=== PATIENT | female | born 1990 | race Caucasian/White ===

== ENCOUNTER 2016-10-31 01:58 | Emergency (ER) | payer BC ==
[~2016-10-31] VITALS: Ht 162.6 cm; Wt 81.2 kg
[~2016-10-31 01:58] MED LIST: HYDR-2013 PO; HYDR-707 PO; OXYC1TAB87 PO; PENI250T2 PO
[2016-10-31] MEDS ORDERED: GI COCKTAIL 55 ML UDC PO ONE (02:30)
[2016-10-31] MEDS ORDERED: BELLADONNA/PHENOBARBITAL ELIXIR (DONNATAL) 10 ML UDC ONE (02:46)
[2016-10-31] MEDS ORDERED: LIDOCAINE 2% VISCOUS 20ML UDC PO ONE (02:46)
[2016-10-31] MEDS ORDERED: MAG HYDROX/AL HYDROX/SIMETH 400-400-40/5 ML (MAG-AL PLUS XS) 30 ML UDC ONE (02:46)
[2016-10-31 02:49] LABS: BASOPHILS % (AUTO) 0 % (0-2); EOSINOPHILS # (AUTO) 0.1 10^3uL; EOSINOPHILS % (AUTO) 2 % (0-4); LYMPHOCYTES # (AUTO) 2.6 X10^3; MEAN CORPUSCULAR HEMOGLOBIN 28.6 PG (26.0-34.0); MEAN CORPUSCULAR HGB CONC 34.6 g/dL (31.0-37.0); MEAN CORPUSCULAR VOLUME 83 FL (80-100); MEAN PLATELET VOLUME 9.7 FL (6.0-9.5); MONOCYTES # (AUTO) 0.5 X10^3; MONOCYTES % (AUTO) 6 % (3-11); NEUTROPHILS # (AUTO) 4.6 X10^3; NEUTROPHILS % (AUTO) 59 % (51-67); PLATELET COUNT 241 10^3uL (150-450); WHITE BLOOD COUNT 7.83 10^3uL (4.0-11.0)
[2016-10-31 02:58] LABS: ALBUMIN 4.7 g/dL (3.4-5.0); ALKALINE PHOSPHATASE 109 U/L (38-126); ANION GAP 14.6 MEQ/L (3-15); BUN/CREATININE RATIO 27 (10-20); CALCULATED IONIZED CALCIUM 3.7 mg/dL (3.8-4.6); LIPASE* 78 U/L (23-300); TOTAL PROTEIN 8.6 g/dL (6.4-8.5)
[2016-10-31] MEDS ORDERED: ONDANSETRON 2 MG/ML (Z0FRAN) 2 ML VIAL IV ONE (03:15)
[2016-10-31] MEDS ORDERED: KETOROLAC 30 MG/ML (TORADOL) 1 ML VIAL IV ONE (03:15)
[2016-10-31] MEDS ORDERED: SODIUM CHLORIDE FLUSH 10 ML SYR IV PRN (03:20)
[2016-10-31] MEDS ORDERED: ED- HYDROcodone/ACETAMINOPHEN 5MG/325MG (NORCO) 6 TABLETS/BTL PO ONE ×2 (03:50→03:55)
[2016-10-31 04:07] VITALS: BP 123/72
--- NOTE | 2016-10-31 07:28 | Diagnostic Imaging Report ---
INDICATION: Right-sided chest pain x2 hours.. TECHNIQUE: Single view chest 3:01 AM. CORRELATION STUDY: None FINDINGS: The heart size, mediastinal configuration and pulmonary vascularity are within normal limits. The lungs are clear with no consolidating infiltrate. There is no significant effusion or pneumothorax. IMPRESSION: 1. Negative portable chest. Dictated by: Dictated on workstation # [id number]
== END 2016-10-31 04:08 | disposition home or self-care (01) ==
LOC: ED 02:08 → MERGE 02:08 → ED 04:08
DX: R10.11 Right upper quadrant pain (principal)
CPT/HCPCS: 36415; 71010; 80053; 83690; 84484; 85025; 85379; 96374; 96375; 99283; J1885; J2405

== ENCOUNTER 2016-10-31 22:17 | Inpatient (IN) | payer BC ==
[~2016-10-31] VITALS: Ht 162.6 cm; Wt 83.0 kg
--- OUTSIDE RECORDS SUMMARY | 2016-10-31 22:21 | XMS REPORT | Continuity of Care Document ---
Author Author [facility] Address Unknown Phone Unavailable Care Team Providers Care Horticultural Worker Name Role Phone MINH ROBLES MD PCP [phone] Insurance Providers Payer Name Policy Number Subscriber Name Relationship [facility] [id number] CollinMarlin L 01 Advance Directives Directive Response Recorded Date/Time Advanced Directives Not applicable 10/31/16 2:10am Chief Complaint and Reason for Visit Chief Complaint Pain Reason for Visit Right upper quadrant pain Problems Active Problems Medical Problem Onset Date Status Right upper quadrant pain ~10/31/2016 Acute Medications No medication information available. Social History Query Response Start Date Stop Date Smoking Status Former smoker Hospital Discharge Instructions No hospital discharge instructions. Plan of Care Discharge Date 10/31/16 4:08am Disposition 01 HOME OR SELF-CARE Condition at Discharge Stable Instructions/Education Provided Hydrocodone and Acetaminophen Gallstones (DC) Forms Provided Return to Work Prescriptions See Medication Section Referrals MINH ROBLES MD - Additional Instructions/Education Call Dr Robles this week for an appointment to further evaluate the gallbladder. Low fat diet until further evaluation. You may take the norco when you get home for further pain. Return to ER for further evaluation. Some of your test results may not be complete prior to your leaving the Emergency Department. The Emergency Department is not authorized to give test results over the phone. Please contact the doctor's office listed in this packet of information for your final results. Follow up with your primary care physician or return to the Emergency Department for worsening or worrisome symptoms. * Emergency Department phone number: [phone], x [phone]* MEDICAL RECORD If you need copies of your X-rays, call [phone]. If you need copies of your medical record, including lab results, a signed authorization for release of records will be required. A telephone call for release of Health Information is not allowed. BILLING Billing can sometimes be confusing and frustrating. To help avoid confusion in the future, please take a moment to acquaint yourself with the billing parties for services. SERVICE [employer]ILL[employer] Emergency Room Services [facility] Physician Services [facility] X-rays [facility] Patients will receive bills for services from the appropriate provider. If you have any questions about your [facility] bill, our staff will be happy to assist you. Please call [phone], and ask for the billing department. THANK YOU for choosing [facility] as your emergency care provider! Care Plan and Goals ~~Discharge Care Plan~~ Problem: Abdominal pain Goal: Decreased level of pain. Return to usual activities. Instructions: Take medication(s) as directed; follow up with primary care physician as directed; follow patient home care instructions.~~Discharge Care Plan~~ Problem: Nausea, vomiting or diarrhea Goal: Decrease in nausea, vomiting or diarrhea Instructions: Encourage fluids approximately 6-8 glasses of water or noncarbonated fluids. Take medication(s) as directed. Follow home discharge instructions. Follow up with primary care physicians or harness worker as directed. Functional Status No functional status results. Allergies, Adverse Reactions, Alerts Allergen Type Severity Reaction Status Last Updated No Known Allergies Allergy Unknown Active 10/31/16 Immunizations No immunization records. Vital Signs Acute Vital Signs Vital Response Date/Time Temperature (Fahrenheit) 98.2 10/31/2016 4:07am Pulse 68 bpm 10/31/2016 4:07am Respirations 16 10/31/2016 4:07am Height 5 ft 4 in Weight 179 lb Body Mass Index 30.0 kg/m^2 Results Laboratory Results Test Name Result Units Flags Reference Collection Date/Time Result Date/ Time Comments White Blood Count 7.83 10^3uL 4.0-11.0 10/31/2016 2:40am 10/31/2016 2: 52am Red Blood Count 4.69 10^6uL 4.00-5.00 10/31/2016 2:4010/31/2016 2: 52am Hemoglobin 13.4 g/dL 12.0-15.5 10/31/2016 2:4010/31/2016 2:52am Hematocrit 38.70 % 35.00-45.00 10/31/2016 2:4010/31/2016 2:52am Mean Corpuscular Volume 83 FL 80-100 10/31/2016 2:4010/31/2016 2: 52am Mean Corpuscular Hemoglobin 28.6 PG 26.0-34.0 10/31/2016 2:402016 2:52am Mean Corpuscular Hemoglobin Concent 34.6 g/dL 31.0-37.0 10/31/2016 2: 4010/31/2016 2:52am Red Cell Distribution Width 12.8 % 11.8-15.6 10/31/2016 2:402016 2:52am Platelet Count 241 10^3uL 150-450 10/31/2016 2:4010/31/2016 2:52am Mean Platelet Volume 9.7 FL H 6.0-9.5 10/31/2016 2:4010/31/2016 2: 52am Neutrophils (%) (Auto) 59 % 51-67 10/31/2016 2:4010/31/2016 2:52am Lymphocytes (%) (Auto) 33 % 20-46 10/31/2016 2:4010/31/2016 2:52am Monocytes (%) (Auto) 6 % 3-11 10/31/2016 2:4010/31/2016 2:52am Eosinophils (%) (Auto) 2 % 0-4 10/31/2016 2:4010/31/2016 2:52am Basophils (%) (Auto) 0 % 0-2 10/31/2016 2:40am 10/31/2016 2:52am Neutrophils # (Auto) 4.6 X10^3 10/31/2016 2:40am 10/31/2016 2:52am Lymphocytes # (Auto) 2.6 X10^3 10/31/2016 2:40am 10/31/2016 2:52am Monocytes # (Auto) 0.5 X10^3 10/31/2016 2:40am 10/31/2016 2:52am Eosinophils # (Auto) 0.1 10^3uL 10/31/2016 2:40am 10/31/2016 2:52am Basophils # (Auto) 0.0 10^3uL 10/31/2016 2:40am 10/31/2016 2:52am D-Dimer 385 ng/mL 0-500 10/31/2016 2:40am 10/31/2016 3:02am Sodium Level 142 mmol/L 135-150 10/31/2016 2:40am 10/31/2016 3:01am Potassium Level 4.1 mmol/L 3.5-5.1 10/31/2016 2:40am 10/31/2016 3:01am Chloride Level 104 mmol/L 98-108 10/31/2016 2:40am 10/31/2016 3:01am Carbon Dioxide Level 27 mmol/L -10/31/2016 2:4010/31/2016 3: 01am Anion Gap 14.6 MEQ/L 3-10/31/2016 2:40am 10/31/2016 3:01am Blood Urea Nitrogen 17 mg/dL 12-2810/31/2016 2:40am 10/31/2016 3:01am Creatinine 0.64 mg/dL 0.6-1.2 10/31/2016 2:4010/31/2016 3:01am BUN/Creatinine Ratio 27 H -10/31/2016 2:40am 10/31/2016 3:01am Estimat Glomerular Filtration Rate 138.0 10/31/2016 2:40am 2016 3:01am Estimated GFR (Non- 114.0 10/31/2016 2:402016 3:01am Glucose Level 106 mg/dL 70-110 10/31/2016 2:40am 10/31/2016 3:01am Calculated Osmolality 275 mosm/L L 280-300 10/31/2016 2:40am 10/31/2016 3:01am Calcium Level 9.4 mg/dL 8.8-10.8 10/31/2016 2:40am 10/31/2016 3:01am Calcium/Ionized Calcium Ratio 3.7 mg/dL L 3.8-4.6 10/31/2016 2:40am 3:01am Total Bilirubin 0.6 mg/dL 0.1-1.0 10/31/2016 2:40am 10/31/2016 3:01am Alkaline Phosphatase 109 U/L 38-126 10/31/2016 2:40am 10/31/2016 3: 01am Aspartate Amino Transf (AST/SGOT) 21 U/L 15-37 10/31/2016 2:40am 2016 3:01am Alanine Aminotransferase (ALT/SGPT) 29 U/L L 30-65 10/31/2016 2:40am 3:01am Troponin I < 0.012 ng/mL 0.010-0.080 10/31/2016 2:40am 10/31/2016 3: 09am Total Protein 8.6 g/dL H 6.4-8.5 10/31/2016 2:40am 10/31/2016 3:01am Albumin 4.7 g/dL 3.4-5.0 10/31/2016 2:40am 10/31/2016 3:01am Albumin/Globulin Ratio 1.205 1.1-1.8 10/31/2016 2:40am 10/31/2016 3: 01am Lipase 78 U/L 23-300 10/31/2016 2:40am 10/31/2016 3:01am Procedures No known history of procedures. Encounters Encounter Location Arrival/Admit Date Discharge/Depart Date Attending Provider Departed Emergency Room [facility] 10/31/16 2:08am 10/31/16 4:08am RENAE HOUSE MD Recent Diagnosis
--- NOTE | 2016-10-31 22:30 | NUR ---
Pt presents ambulatory to ER with c/o epigastric pain that radiates to back, rated 10-11/10. Was seen last night in ER for same complaint. Has not taken anything for pain since noon today, says Matt wasn't working. Pt has temp of 100.3 Admitted to ER room 9. Call light in reach, side rail up times one. No other needs at this time.
[2016-10-31 23:55] LABS: BILIRUBIN,URINE Negative (Negative); COLOR,URINE Yellow; GLUCOSE, URINE (UA) Negative (Negative); LEUKOCYTE ESTERASE ,URINE Trace (Negative); PH,URINE 6.5 (5.0 - 8.0); UROBILINOGEN,URINE 0.2 mg/dL (0.2-1.0)
[2016-10-31 23:57] LABS: ALBUMIN 4.8 g/dL (3.4-5.0); ANION GAP 15.8 MEQ/L (3-15); CALCULATED IONIZED CALCIUM 3.6 mg/dL (3.8-4.6); TOTAL PROTEIN 8.9 g/dL (6.4-8.5)
[2016-10-31 23:59] LABS: BASOPHILS % (AUTO) 0 % (0-2); EOSINOPHILS % (AUTO) 0 % (0-4); LYMPHOCYTES # (AUTO) 1.5 X10^3; MEAN CORPUSCULAR HEMOGLOBIN 28.6 PG (26.0-34.0); MEAN CORPUSCULAR HGB CONC 34.7 g/dL (31.0-37.0); MEAN CORPUSCULAR VOLUME 82 FL (80-100); MEAN PLATELET VOLUME 10.1 FL (6.0-9.5); MONOCYTES # (AUTO) 0.7 X10^3; MONOCYTES % (AUTO) 6 % (3-11); NEUTROPHILS # (AUTO) 9.3 X10^3; NEUTROPHILS % (AUTO) 81 % (51-67); PLATELET COUNT 265 10^3uL (150-450); WHITE BLOOD COUNT 11.45 10^3uL (4.0-11.0)
[2016-11-01] VITALS (17 sets, daily range): BP systolic 108–135; BP diastolic 63–87
[2016-11-01 00:06] LABS: CLARITY,URINE Slightly Cloudy
[2016-11-01 00:14] LABS: RBC,URINE 0-2 /HPF; URINE CENTRIFUGED VOLUME 12 mL
[2016-11-01] MEDS ORDERED: SODIUM CHLORIDE FLUSH 10 ML SYR IV PRN (00:35)
[2016-11-01] MEDS ORDERED: HYDROmorphone 1 MG/ML (DILAUDID) SYRINGE IV ONE ×2 (00:35→03:00)
[2016-11-01] MEDS ORDERED: SODIUM CHLORIDE FLUSH 3 ML SYR IV ONE (00:35)
--- NOTE | 2016-11-01 01:27 | NUR ---
IV site in RAC infiltrated during CT scan. Restarted IV to LH 20 G, 1st attempt.
[2016-11-01] MEDS ORDERED: cefTRIAXone SODIUM 1,000 MG in SODIUM CHLORIDE 50 ML IV ONE (02:20)
[2016-11-01] MEDS ORDERED: D5 1/2 NS W/KCL 20 MEQ/L 1,000 ML IV SCH (03:10)
[2016-11-01] MEDS ORDERED: ONDANSETRON 2 MG/ML (Z0FRAN) 2 ML VIAL IV PRN ×2 (03:10→15:10)
--- NOTE | 2016-11-01 03:20 | NUR ---
Pt admitted to Med/Surg Rm 319 as observation for Cholecystitis. Pt taken to room 319 via wheelchair. Report given to TASNEEM Pierre.
--- NOTE | 2016-11-01 03:23 | NUR ---
Pt. presents to the Med Surg floor via wheelchair accompanied by ER/RN Allie. Pt. is alert and orientated; ambulates easily to weigh chair; changed into gown; denies nausea; rates current pain level at "2" currently. Pt. ambulates to and fro bathroom steadily; voids 450 cc's yellow, clear urine. Admission process continues.
--- NOTE | 2016-11-01 04:05 | NUR ---
Zofran 4 mg IV given for nausea; cool washcloth provided for forehead.
[2016-11-01] MEDS: HYDROmorphone 1 MG/ML (DILAUDID) SYRINGE IV PRN ×2 (04:10→08:11)
--- NOTE | 2016-11-01 04:10 | NUR ---
Dilaudid 0.5 mg IV given for upper, right abd. pain rated "6". D5 1/2 NS + 20 KCL infusing at 125 cc/hr without difficulty. NPO status observed. Call light by left hand.
--- NOTE | 2016-11-01 04:40 | NUR ---
Pt. resting quietly with HOB slightly up; resp are even and unlabored on room air; appears to be in no distress.
--- NOTE | 2016-11-01 05:30 | NUR ---
Pt.'s phones to check on 's status; update given. plans to come to hospital after getting the older two children (of five) to school.
--- NOTE | 2016-11-01 06:20 | NUR ---
Pt. continues to rest quietly; resp are even and unlabored on room air; appears to be in no distress. NPO status; SCD's tolerated well; call light within reach.
--- NOTE | 2016-11-01 07:15 | NUR ---
Pt sitting up in bed at this time. States pain and nausea are okay, denies need for intervention. IVF infusing with no difficulty. Will continue to monitor.
--- NOTE | 2016-11-01 08:13 | NUR ---
Dr Barber in room around 0800. Pt tells that pain is controlled, but upon assessment pt rates pain 8/10. Some facial grimacing noted, no guarding. Pt resting flat in bed. PRN Dilaudid given at this time. Endorses nausea, no medications available. Offered to ask for other antiemetics, pt states "it's okay, I just feel it. I can wait until it's available". Informed pt to let staff know if nausea worsens. Will continue to monitor.
--- NOTE | 2016-11-01 08:36 | Diagnostic Imaging Report ---
PROCEDURE: CT abdomen and pelvis with contrast. TECHNIQUE: Multiple contiguous axial images were obtained through the abdomen and pelvis after administration of intravenous contrast. INDICATION: Right upper quadrant abdominal pain. AVAILABLE COMPARISONS: None. Images through the thoracic base are negative. The liver and spleen are negative. The gallbladder is moderately distended. At the lateral aspect of the gallbladder, there may be some wall thickening or trace of fluid. Inside the lumen of the gallbladder a faint rim density is present. No calcific stone is seen in the lumen although CT will only detect about 50% of gallstones. The bile ducts are not dilated. The spleen and adrenal glands are negative. The pancreas does not show any significant abnormality. The kidneys are negative for stone or hydronephrosis. No pathologically enlarged lymph nodes are identified in the abdomen or retroperitoneum. Images through the pelvis showed an anteflexed uterus with no pelvic mass or lymphadenopathy. Urinary bladder is unremarkable. The appendix is normal. No bowel wall thickening is identified. The terminal ileum is within normal limits. IMPRESSION: Moderately distended gallbladder with a small amount of fluid around the gallbladder or gallbladder wall thickening. Possible gallstone. Findings could represent acute cholecystitis. Ultrasound is suggested. Report was called and faxed to patient's nurse Orin @ [facility] in [place], [place], @ 9:38 AM/randal. Dictated by: Dictated on workstation # [id number]
[2016-11-01] MEDS ORDERED: METOCLOPRAMIDE 10 MG/2 ML (REGLAN) VIAL IV PRN ×2 (09:00→15:00)
[2016-11-01] MEDS ORDERED: ENOXAPARIN 40 MG/0.4 ML (LOVENOX) SYR SC SCH (09:00)
--- NOTE | 2016-11-01 09:24 | NUR ---
Staff informed this nurse that pt vomited. No PRNs available. Sunil notified, new orders entered. PRN Reglan given at this time. States pain is better. Denies other needs.
--- NOTE | 2016-11-01 09:33 | Diagnostic Imaging Report ---
PROCEDURE: US Gallbladder. TECHNIQUE: Multiple real-time grayscale images were obtained over the right upper quadrant in various projections. INDICATION: Right upper quadrant abdominal pain. FINDINGS: Gallbladder is distended with mild wall thickening. Wall thickness reaches 0.5 cm. There is intraluminal gallbladder sludge and apparent 1.6 cm calculus at the gallbladder neck. No pericholecystic fluid is identified and there is no evidence biliary ductal dilatation. Adjacent liver and pancreas reveal no abnormality. IMPRESSION: 1.6 cm gallstone at the gallbladder neck with gallbladder wall thickening would be consistent with developing cholecystitis. There is no evidence of biliary obstruction. Dictated by: Dictated on workstation # [id number]
[2016-11-01] MEDS ORDERED: ceFAZolin 2,000 MG in SODIUM CHLORIDE 100 ML IV ONE (09:55)
--- NOTE | 2016-11-01 10:04 | NUR ---
Dr Barber calls this nurse to report that pt will go down for lap marie, possible open procedure this morning. States OR should be ready in approx one hour and asked that this nurse inform pt of this plan. Pt is agreeable to this.
[2016-11-01] MEDS ORDERED: LACTATED RINGERS 1,000 ML IV ONE (10:12)
[2016-11-01] MEDS ORDERED: ALFENTANIL 500 MCG/ML (ALFENTA) 5 ML AMP IV ONE (10:16)
[2016-11-01] MEDS ORDERED: MIDAZOLAM 2 MG/2 ML (VERSED) VIAL ONE (10:16)
[2016-11-01] MEDS ORDERED: PROPOFOL 20 ML IV ONE (10:17)
[2016-11-01] MEDS ORDERED: ROCURONIUM 50 MG/5 ML (ZEMURON) VIAL IV ONE (10:17)
[2016-11-01] MEDS ORDERED: SODIUM CHLORIDE FLUSH 3 ML SYR IV PRN (10:20)
[2016-11-01] MEDS ORDERED: LACTATED RINGERS 1,000 ML IV SCH (10:20)
[2016-11-01] MEDS ORDERED: SODIUM CHLORIDE VIAL (PF) 20 ML IV ONE (10:29)
--- NOTE | 2016-11-01 10:29 | NUR ---
Pt to OR at this time accompanied by Ashley, OR RNs. LR hanging by gravity.
[2016-11-01] MEDS ORDERED: ceFAZolin 1000 MG (ANCEF) VIAL ONE (10:30)
[2016-11-01] MEDS ORDERED: BUPIVACAINE/EPINEPHRINE 0.5%-1:200,000 (MARCAINE) 30 ML VIAL INJ ONE (10:30)
[2016-11-01] MEDS ORDERED: NEOSTIGMINE 1 MG/ML SYRINGE ONE (12:06)
[2016-11-01] MEDS ORDERED: GLYCOPYRROLATE 0.2 MG/ML (ROBINUL) 1 ML VIAL ONE (12:06)
[2016-11-01] MEDS ORDERED: KETOROLAC 60 MG/2 ML (TORADOL) VIAL IM ONE (12:09)
--- NOTE | 2016-11-01 13:04 | NUR ---
Pt returns to floor via bed accompanied by Yeimi, OR RNs. Pt is quite sleepy, but rouses easily. Asks if she can have something to drink and something to eat. Oriented to post op orders. LR by gravity DC'd, D5 1/2 NC with 20 KCl @ 125mL/hr by pump initiated at this time. Denies pain at this time. 4 lap incisions noted, drsgs dry and intact. Post op VS initiated. Will continue to monitor.
--- NOTE | 2016-11-01 13:36 | HISTORY AND PHYSICAL ---
HISTORY CHIEF COMPLAINT: Right upper quadrant abdominal pain. HISTORY OF PRESENT ILLNESS: Patient is a 25-year-old who was admitted overnight from the ER with abdominal pain that has been going on for 2 to 3 days. It has been localized under the right anterior chest wall and right upper quadrant, radiating somewhat to her back. She has had some nausea, and loss of appetite during this time. She has not had ongoing symptoms like this in the past, but she has tried to avoid fatty or greasy foods at the recommendation of her physician for other reasons. Her workup in the ER included a CBC that shows white blood cell count 11,000, and CT scan performed overnight that shows what appears to be a moderately distended gallbladder with either small amount of fluid around the wall or gallbladder wall thickening. A gall bladder sonogram shows a 1.6 cm call stones in the gallbladder neck. She hasn't had any black or bloody stools and no previous history of peptic ulcer disease. 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 PAST SURGICAL HISTORY: Tubal ligation. ALLERGIES: None. HOME MEDICATIONS: None. CURRENT MEDICATIONS: FAMILY HISTORY: Significant for mother with coronary artery disease and a sister with colon cancer. SOCIAL HISTORY: She quit smoking about 4 months ago. She does not drink alcohol on a regular basis. She is and has five children. She works at [employer]. REVIEW OF SYSTEMS: She did have a fever on admission at 100.3. Her overall health recently has been good. Pulmonary no history of chronic lung disease but she did smoke. Cardiovascular: No history of chest pain or heart disease. Gastrointestinal as above. 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 Urine has been unremarkable. Endocrine: No history of diabetes or thyroid disease. Hematologic: History of DVT. Neurologic: No history of seizure disorder. PHYSICAL EXAM VITAL SIGNS: Temp 97.8. Heart rate 86. BP 108/69. Respirations 16. GENERAL: The patient is a young female alert and orientated x 3 in no acute distress. She has received pain medicine intravenously. HEENT: No scleral icteris. Lungs clear to auscultation bilaterally. Neck supple and nontender with no lymphadenopathy. HEART: S1 S2 regular rate and rhythm. ABDOMEN: Bowel sounds are present there is tenderness in the right upper quadrant and Scott's sign is present. No masses were palpable. She has a well-healed infraumbilical scar from her tubal ligation. SKIN: Warm and dry with no jaundice. NEURO: Grossly intact. LABS: As described total bilirubin was 1.1. Lipase is 23. ASSESSMENT: Acute cholecystitis with cholelithiasis. PLAN: I recommend laproscopic cholecystectomy. The risks and benefits were discussed including bleeding and infection, injury to the hepatic or bile duct, and the typical recovery involved. She would like to proceed and this will be done today.
--- NOTE | 2016-11-01 13:56 | NUR ---
NUTRITION ASSESSMENT Level 1 Patient: Yamileth Polanco Age/Sex: 25/F Date Screened: 11-01-16 Weight: 182.6#/83 kg Height: 64 inches Primary Diagnosis: cholecystitis Diet Order: NPO Relevant labs: N/A Food allergies: N Nutrition Assessment Criteria Age over 80: N Body Mass Index (BMI) under 19: N Admission Screening Indicates Risk? N Moderate/High Risk Diagnosis: 3 points TPN or PPN: N NPO or clear liquid diet: Yes Serum Glucose <70 or >180: N/A Hgb A1c >6.7: N/A Total: 3 points Risk Screen: __ Patient at low nutritional risk based on available data; reevaluate in 5-7 days _X_ Patient at moderate nutritional risk based on available data; reevaluate in 3-5 days __ Patient at high nutritional risk; complete Nutrition Assessment within 48 hours of admission. Comments: Patient to OR this morning for cholecystectomy; will reassess as documented above.
[2016-11-01] MEDS ORDERED: SODIUM CHLORIDE FLUSH 10 ML ONE (14:28)
[2016-11-01] MEDS: morphine INJ 2 MG/ML 1 ML SYRINGE IV PRN ×2 (14:31→22:40)
--- NOTE | 2016-11-01 14:31 | NUR ---
PRN Morphine given at this time by Yuri Cox RN for c/o pain rated 8/10.
--- NOTE | 2016-11-01 15:25 | NUR ---
Pt states "the pain is fine right now". Pt is curled up on one side in bed and has a slight facial grimace. Offered PO pain meds. PRN Ultram given at this time for incisional pain. Denies other needs.
[2016-11-01] MEDS: D5 1/2 NS W/KCL 20 MEQ/L 1,000 ML IV SCH ×2 (15:26→22:42)
[2016-11-01] MEDS: KETOROLAC 30 MG/ML (TORADOL) 1 ML VIAL IV PRN (18:39)
--- NOTE | 2016-11-01 18:43 | NUR ---
PRN Toradol given at this time for c/o incisional pain rated 8/10. Pt denies nausea. IVF infusing with no difficulty. 2 of 4 incision sites have serous drainage, other two are dry. Denies other needs.
--- NOTE | 2016-11-01 20:03 | NUR ---
Ultram 100 mg administered for pain. 12/20. Moves well. Abdominal dressings intact. Two of the four have a small amount of pinkish drainage. Patient denies nausea, Did not eat much supper. Taking sprite and water without difficulty. Watching TV. No needs at the present time. Call light within reach.
--- NOTE | 2016-11-01 22:40 | NUR ---
Patient requested something stronger for pain. MS 2mg administered IV. Reminded patient to call foe assistance to the bathroom. Ate part of a sandwich and some pudding. IV patent at 125 cc an hour. Ready for sleep. Call light within reach.
--- NOTE | 2016-11-02 | NUR ---
Up to bathroom. Voided. Moves slowly. Cooperative with cares.
[2016-11-02] MEDS ORDERED: SODIUM CHLORIDE FLUSH 10 ML SYR IV PRN (00:35)
[2016-11-02 04:00] VITALS: BP 125/86
[2016-11-02] MEDS: KETOROLAC 30 MG/ML (TORADOL) 1 ML VIAL IV PRN (04:10)
--- NOTE | 2016-11-02 04:10 | NUR ---
Toradol administered as ordered for incisional discomfort. Encouraged to C and DB. Taking food and fluids without nausea. IV infused and placed to SL. No discomforts this morning. Call light within reach.
[2016-11-02] MEDS: D5 1/2 NS W/KCL 20 MEQ/L 1,000 ML IV SCH ×2 (04:40→12:40)
--- NOTE | 2016-11-02 06:33 | NUR ---
Resting with eyes closed. Resp even and non-labored. No concerns at this time. Dressings remain intact x4. No new drainage on dressings. Does not need pain meds at this time.
[2016-11-02 07:27] VITALS: BP 132/77
[2016-11-02] MEDS ORDERED: TRM50T PO (08:01)
--- NOTE | 2016-11-02 08:07 | Discharge Instructions (E) ---
Discharge Instructions Instructions May shower. Change dressings daily and as needed. May discontinue dressings when dry. Activity Instructions No lifting more than 20lbs for two weeks. Doctor's Appointment F/U in clinic with Dr. Barber in 1-2 weeks. Discharge Diet: Regular PHILOMENA BARBER MD November 02, 2016 08:07
--- NOTE | 2016-11-02 08:09 | Progress Note-A/P (E) ---
Progress Note Subjective Subjective Doing well. Tolerating oral intake and ambulation. Objective VS Vital Signs Date Time Temp Pulse Resp B/P Pulse Ox O2 Delivery O2 Flow Rate FiO2 11/02/16 07:27 97.4 63 16 132/77 96 Room air I&O I & O Past 24 hrs 11/02/16 07:00 Intake Total 3984 ml Output Total 1050 ml Balance 2934 ml Intake Oral 2216 ml IV Total 1768 ml Output Urine Total 1000 ml Emesis 50 ml Current Medications Current Medications Dextrose/Sodium Chloride 1,000 ml @ 125 mls/hr Q8H IV Last administered on 11/01 22:42; Admin Dose 125 MLS/HR; Start 11/01/16 at 12:40 Enoxaparin Sodium 40 mg Q24HR SC; Start 11/02/16 at 09:00 Metoclopramide HCl 10 mg Q6H PRN IV; Start 11/01/16 at 15:00 Ondansetron HCl 4 mg Q6H PRN IV; Start 11/01/16 at 15:10 Sodium Chloride 10 ml PRN PRN IV; Start 11/02/16 at 00:35 Tramadol HCl 100 mg Q4H PRN PO Last administered on 11/01/16 20:03; Admin Dose 100 MG; Start 11/01/16 at 12:40 Morphine Sulfate 2 mg Q1H PRN IV Last administered on 11/01/16 22:40; Admin Dose 2 MG; Start 11/01/16 at 12:40 Ketorolac Tromethamine 30 mg Q6H PRN IV Last administered on 11/02/16 04:10; Admin Dose 30 MG; Start 11/01/16 at 12:40; Stop 11/06/16 at 12:39 General Awake, alert, oriented, no distress. Abdomen Soft, dressings intact. Integumentary No unusual findings Assessment POD#1 Lap marie for acute cholecystitis Plan DC home with clinic follow-up. PHILOMENA ALEGRIA MD November 02, 2016 08:09
[2016-11-02] MEDS ORDERED: ENOXAPARIN 40 MG/0.4 ML (LOVENOX) SYR SC SCH (09:00)
--- NOTE | 2016-11-02 09:32 | NUR ---
Pt awake and alert. Sister in room visiting. Her kids have come to visit earlier this AM. Ultram 100mg PO given 909 for abd incisional pain rated 7/10. Pt ambulated halls x1lap with Corinna Jia FERREIRA- went back to room because she became dizzy. Will cont to monitor. Addendum: 11/02/16 at 0935 by Oliva Segundo RN Dressing changed to 4 incisions- incisions well approximated.
[2016-11-02] MEDS ORDERED: SODIUM CHLORIDE FLUSH 3 ML SYR IV PRN (10:20)
[2016-11-02 11:21] VITALS: BP 121/77
--- NOTE | 2016-11-02 11:22 | OPERATIVE REPORT ---
DATE OF OPERATION: November 01, 2016 PRE-OPERATIVE DIAGNOSIS: Acute cholecystitis with cholelithiasis. POST-OPERATIVE DIAGNOSIS: Same. OPERATIVE PROCEDURE: Laproscopic cholecystectomy. SURGEON: Bereket Barber MD DIRECTOR EMERGENCY: Lisa Medina ANESTHESIA: General tracheal anesthetic. INDICATION: The patient is a 25-year-old who was admitted with right upper quadrant pain, leukocytosis and imaging consistent with acute cholecystitis. She was taken urgently to the operating room for laparoscopic cholecystectomy. DESCRIPTION OF PROCEDURE: The patient was informed of the risks and benefits and agreed to proceed. She was administered preoperative IV antibiotics. She was taken to the operating room and placed supine on the standard operating table, where she was administered general tracheal anesthetic. When properly anesthetized her abdomen was prepped and draped in standard sterile fashion. She had a previous intraumbilical trochanteric scar from her tubal ligation, and the skin at this incision was excised to enter the same location. The open technique was used to access the peritoneal cavity through the transverse incision and O-Vicryl stay sutures were placed in the fascia a 10 mm port was inserted and CO2 then displaced at 15 mm mercury pressure. An Olympus 3D Endo-Eye Laparoscope was used for visualization. The patient was placed in reverse Trendelenburg position rotated slightly to the left. Under direct vision a sub xiphoid 5 mm port and 2 sub costal right sided 5 mm ports were placed. The gallbladder was distended and had to be aspirated of its contents with the laparoscopic needle in order to handle it this was easily done. It did contain green bilious material. The fundus was then retracted superiorly and the infundibulum retracted laterally and medially as needed. Gentle blunt dissection and cautery were used to incise the peritoneum and a couple of adhesions just below the infundibulum in order to access the cystic duct. The triangle of Calot was dissected free, with the cystic artery and node of Calot the only structure seen within the triangle entering the gallbladder. A clip was placed proximally on the cystic duct and the duct was divided just below the clip to prepare for the cholangiogram however, the duct was quite small, and in the process of trying to access it with the cholangiogram catheter, appeared to have been transected. The distal end was grasped and secured with a PDS Endoloop. The cholangiogram was not obtained. The node of Calot was then gently dissected away from the infundibulum to expose the underlying cystic artery, which was clipped twice proximally once distally and divided between the distal clips. The gallbladder was then from its attachment to the liver with cautery and gentle traction it was removed using an Endobag under direct vision through the umbilical port site. Inspection of the gallbladder fossa revealed no active bleeding, and the Endoloop and the clips intact on the cystic duct and the cystic artery, were respectively. I did cauterize a portion of the lower aspect of the gallbladder fossa because it appeared there may have been some gallbladder wall left behind during the dissection, since the wall was fairly edematous. We irritated and aspirated the contents above and below the right loop of the liver. The upper trocars were then removed under direct vision. The lateral trocar had some bleeding that was easily controlled with cautery and may have actually been from the skin. No bleeding was seen after that was accomplished from any of the trocar sites. The CO2 was let out of the abdomen and the umbilical port was removed. The stay sutures were tied to secure the fascia at that incision all four incisions were then closed at the skin with subcuticular 4-O Monocryl and dressings were applied. The patient tolerated the procedure without complications.
--- NOTE | 2016-11-02 14:08 | NUR ---
@1335 Tramadol 100mg PO given for c/o 7/10 incisional pain. @1406- Discharge instructions reviewed with patient and . Script x1 given for Tramadol- explained to patient to turn in script to her preferred pharmacy. She verbalizes understanding. @1404- Pt dismissed to home with via w/c accompanied by Corinna FERREIRA
== END 2016-11-02 14:08 | disposition home or self-care (01) | DRG 419 ==
LOC: ED 22:21 → MED/SURG 11-01 02:55 → OBSVTOIN 11-01 12:40 → MERGE 11-01 12:40
PROVIDERS: ADMIT Surgery; ATTEND Surgery
PROC: 0FT44ZZ Resection of Gallbladder, Percutaneous Endoscopic Approach (ICD-10-PCS; principal; 2016-11-01)
DX: K80.12 Calculus of gallbladder with acute and chronic cholecystitis without obstruction (principal); Z86.718 Personal history of other venous thrombosis and embolism; Z87.891 Personal history of nicotine dependence
CPT/HCPCS: 36415; 74177; 76705; 80053; 81003; 81015; 81025; 83690; 85025; 87088; 96361; 96365; 96375; 99283; 99284